=== PATIENT | male | born 1990 | race Caucasian/White ===

== ENCOUNTER 2018-07-19 03:06 | Emergency (ER) | payer OTHER ==
[~2018-07-19] VITALS: Ht 175.3 cm; Wt 81.7 kg
[2018-07-19 03:30] LABS: Calcium, Ionized (POC) 1.16 mmol/L (1.10-1.46); Chloride (POC) 106 mmol/L (98-108); Creatinine (POC) 0.8 mg/dL (0.8-1.3); Glucose (ISTAT POC) 99 mg/dL (70-99); Hemoglobin (POC) 13.9 g/dL (13.5-17.5); Potassium (POC) 3.3 mmol/L (3.5-5.5); Sodium (POC) 141 mmol/L (135-148); Total CO2 (POC) 21 mmol/L (21-32)
[2018-07-19] MEDS ORDERED: DULO60 PO (03:32)
[2018-07-19] MEDS ORDERED: LAMO100 PO (03:33)
[2018-07-19] MEDS ORDERED: Ativan1 MG PO (04:04)
[2018-07-19] MEDS ORDERED: Zofran Odt4 MG PO (04:04)
[2018-07-19] MEDS ORDERED: Catapres0.1 MG PO (04:04)
[2018-07-19] MEDS ORDERED: Klonopin0.5 MG PO (15:59)
[2018-07-19] MEDS ORDERED: CLON.5 PO (16:55)
[2018-07-20] MEDS ORDERED: CHLO25 PO (08:00)
[2018-07-20] MEDS ORDERED: GABA300 PO (08:00)
[2018-07-22] MEDS ORDERED: CLON.5 PO (09:46)
[2018-07-22] MEDS ORDERED: LORA1 PO (09:47)
[2018-07-22] MEDS ORDERED: GABA300 PO (09:47)
[2018-07-22] MEDS ORDERED: DULO60 (09:48)
[2018-07-22] MEDS ORDERED: LAMO100 PO (09:48)
== END 2018-07-19 04:25 | disposition home or self-care (01) ==
LOC: ER 03:06
PROVIDERS: Emergency Medicine
DX: F11.23 Opioid dependence with withdrawal (principal); F19.239 Other psychoactive substance dependence with withdrawal, unspecified; Z88.8 Allergy status to other drugs, medicaments and biological substances; Z79.899 Other long term (current) drug therapy
CPT/HCPCS: 80047; 85014; 96374; 96375; 99284-25; J2060; J2405; J7030

== ENCOUNTER 2018-07-19 15:44 | Emergency (ER) | payer OTHER ==
[~2018-07-19] VITALS: Ht 175.3 cm; Wt 81.7 kg
[~2018-07-19 15:44] MED LIST: Ativan1 MG PO; Catapres0.1 MG PO; DULO60 PO; LAMO100 PO; Zofran Odt4 MG PO
[2018-07-19] MEDS ORDERED: Klonopin0.5 MG PO (15:59)
[2018-07-19] MEDS ORDERED: CLON.5 PO (16:55)
[2018-07-20] MEDS ORDERED: GABA300 PO (08:00)
[2018-07-20] MEDS ORDERED: CHLO25 PO (08:00)
[2018-07-22] MEDS ORDERED: CLON.5 PO (09:46)
[2018-07-22] MEDS ORDERED: GABA300 PO (09:47)
[2018-07-22] MEDS ORDERED: LORA1 PO (09:47)
[2018-07-22] MEDS ORDERED: DULO60 (09:48)
[2018-07-22] MEDS ORDERED: LAMO100 PO (09:48)
== END 2018-07-19 17:04 | disposition home or self-care (01) ==
LOC: ER 15:44
DX: G40.909 Epilepsy, unspecified, not intractable, without status epilepticus (principal); F19.939 Other psychoactive substance use, unspecified with withdrawal, unspecified; F11.20 Opioid dependence, uncomplicated; F41.9 Anxiety disorder, unspecified; Z79.899 Other long term (current) drug therapy
CPT/HCPCS: 96374; 99284-25; J2060

== ENCOUNTER 2018-07-20 07:43 | Emergency (ER) | payer OTHER ==
[~2018-07-20] VITALS: Ht 175.3 cm; Wt 81.7 kg
[~2018-07-20 07:43] MED LIST changes: +CLON.5 PO; +Klonopin0.5 MG PO
[2018-07-20] MEDS ORDERED: CHLO25 PO (08:00)
[2018-07-20] MEDS ORDERED: GABA300 PO (08:00)
[2018-07-22] MEDS ORDERED: CLON.5 PO (09:46)
[2018-07-22] MEDS ORDERED: LORA1 PO (09:47)
[2018-07-22] MEDS ORDERED: GABA300 PO (09:47)
[2018-07-22] MEDS ORDERED: DULO60 (09:48)
[2018-07-22] MEDS ORDERED: LAMO100 PO (09:48)
== END 2018-07-20 10:40 | disposition home or self-care (01) ==
LOC: ER 07:43
DX: G40.909 Epilepsy, unspecified, not intractable, without status epilepticus (principal); Z88.8 Allergy status to other drugs, medicaments and biological substances; Z79.899 Other long term (current) drug therapy; J45.909 Unspecified asthma, uncomplicated; F41.9 Anxiety disorder, unspecified; F31.9 Bipolar disorder, unspecified; F32.9 Major depressive disorder, single episode, unspecified; Z87.891 Personal history of nicotine dependence
CPT/HCPCS: 99284

== ENCOUNTER 2018-07-22 15:17 | Emergency (ER) | payer OTHER ==
[~2018-07-22] VITALS: Ht 172.7 cm; Wt 77.1 kg
[~2018-07-22 15:17] MED LIST changes: +CHLO25 PO; +DULO60; +GABA300 PO; +LORA1 PO
== END 2018-07-22 17:45 | disposition home or self-care (01) ==
LOC: ER 15:17
DX: R56.9 Unspecified convulsions (principal); S09.90XA Unspecified injury of head, initial encounter; F41.9 Anxiety disorder, unspecified; F32.9 Major depressive disorder, single episode, unspecified; Z88.8 Allergy status to other drugs, medicaments and biological substances; Z79.899 Other long term (current) drug therapy; W22.8XXA Striking against or struck by other objects, initial encounter
CPT/HCPCS: 70450; 96374; 99284-25; J1630

== ENCOUNTER 2018-07-24 02:48 | Emergency (ER) | payer OTHER ==
[~2018-07-24] VITALS: Ht 175.3 cm; Wt 77.1 kg
[2018-07-24 03:10] LABS: Calcium, Ionized (POC) 1.28 mmol/L (1.10-1.46); Chloride (POC) 105 mmol/L (98-108); Creatinine (POC) 0.8 mg/dL (0.8-1.3); Glucose (ISTAT POC) 122 mg/dL (70-99); Hemoglobin (POC) 13.3 g/dL (13.5-17.5); Potassium (POC) 3.5 mmol/L (3.5-5.5); Sodium (POC) 143 mmol/L (135-148); Total CO2 (POC) 25 mmol/L (21-32)
[2018-07-24] MEDS ORDERED: THIA100 PO (03:21)
[2018-07-24] MEDS ORDERED: PYRI100 PO (03:21)
[2018-07-24] MEDS ORDERED: MAGOXI400 PO (03:22)
[2018-07-24] MEDS ORDERED: Hair, Skin & N1 EACH PO (03:22)
[2018-07-24] MEDS ORDERED: FOLI400 PO (03:22)
[2018-07-24] MEDS ORDERED: MELATONIN10 MG PO (03:23)
[2018-07-24] MEDS ORDERED: CLON.1 PO (03:24)
[2018-07-24] MEDS ORDERED: ALBU90OI INH (03:25)
== END 2018-07-24 04:07 | disposition home or self-care (01) ==
LOC: ER 02:48
PROVIDERS: Emergency Medicine
DX: R56.9 Unspecified convulsions (principal); F31.9 Bipolar disorder, unspecified; F41.9 Anxiety disorder, unspecified; F17.290 Nicotine dependence, other tobacco product, uncomplicated; Z88.8 Allergy status to other drugs, medicaments and biological substances; Z79.899 Other long term (current) drug therapy; Z79.51 Long term (current) use of inhaled steroids
CPT/HCPCS: 80047; 85014